=== PATIENT | male | born 1950 | race Caucasian/White ===

== ENCOUNTER 2018-08-20 09:45 | Outpatient (RCR) | payer MEDICARE, OTHER | END 2018-10-20 | disposition home or self-care (01) | LOC: WSST | DX: R49.0 Dysphonia (principal) ==

== ENCOUNTER 2020-06-17 10:32 | Day surgery (SDC) | payer MEDICARE, OTHER ==
[~2020-06-17] VITALS: Ht 180.3 cm; Wt 97.2 kg
[2020-06-17] VITALS (10 sets, daily range): BP systolic 96–122; BP diastolic 52–68; PULSE 61–80; TEMP 97.8
[2020-06-17 11:48] LABS: HEMATOCRIT 39.3 % (42.0-52.0); HEMOGLOBIN 13.6 g/dl (13.5-18.0); MEAN CELL VOLUME 90 fl (80.0-100.0); MEAN CORPUSCULAR HEMOGLOBIN 31 pg (27.0-31.0); MEAN CORPUSCULAR HGB CONC 35 g/dl (33.0-37.0); PLATELET COUNT 173 K/mm3 (130-400); RED BLOOD COUNT 4.39 M/mm3 (4.20-5.60)
[2020-06-17 11:55] LABS: INR 1.1 (0.8-3.0); PROTHROMBIN TIME 12.5 SECONDS (9.7-12.8)
[2020-06-17 11:58] LABS: PARTIAL THROMBOPLASTIN TIME 30.8 SECONDS (26.0-37.0)
[2020-06-17 12:00] LABS: CALCIUM 8.8 mg/dL (8.4-10.2); CREATININE, serum 0.73 (0.66-1.25); POTASSIUM 4.3 mmol/L (3.4-5.0)
[2020-06-17] MEDS ORDERED: NORVASC 5MG5 MG/TAB PO (12:19)
[2020-06-17] MEDS ORDERED: ZYRTEC 10MG10 MG PO (12:23)
[2020-06-17] MEDS ORDERED: EPA FISH OIL1 SGL PO (12:23)
[2020-06-17] MEDS ORDERED: ASPIRIN E.C. 8181 MG PO (12:23)
[2020-06-17] MEDS ORDERED: COZAAR100 MG PO (12:24)
[2020-06-17] MEDS ORDERED: DAILY MULTIPLE1 T18 PO (12:25)
[2020-06-17] MEDS ORDERED: PRILOSEC 20MG20 MG PO (12:27)
[2020-06-17] MEDS ORDERED: FIBER0.52 GM PO (12:27)
[2020-06-17] MEDS ORDERED: CRESTOR 10MG10 MG PO (12:28)
[2020-06-17] MEDS ORDERED: FLOMAX 0.40.4 MG/CAP PO (12:29)
[2020-06-17] MEDS ORDERED: ALDACTONE50 MG PO (12:29)
--- NOTE | 2020-06-17 12:47 | NUR ---
SEE MERGE DOCUMENTATION FOR MEDICATION ADMINISRATION AND INTRA/POST PROCEDURE SEDATION ASSESSMENTS.
--- NOTE | 2020-06-17 13:50 | NUR ---
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 Pt is awake and alert, pwd, NSR on monitor denies any complaints. TR band to rt wrist, cms intact distal. Pt and updated on poc. call light in reach. wctm.
--- NOTE | 2020-06-17 15:30 | NUR ---
PT doing well during recovery, lunch has been ordered, pt denies complaints. we have reviewed dc and fu instructions, pt and deny questions at this time.
--- NOTE | 2020-06-17 16:48 | NUR ---
Pt is ready for departure. TR band was deflated with no problem and site was dressed by Janel COKER. At time of departure there is no sign of bleeding, site soft. cms intact distal. Pt has been amb to bathroom and in room with steady gait, no dizziness or other sx. Pt denies any questions about follow up or dc instructions. IV dc'd with cath intact, dressing applied. pt to exit via wheelchair.
--- NOTE | 2020-06-17 16:50 | NUR ---
Dressing applied to right wrist.Observed clean,dry,intact and soft to touch.INT removed,catheter tip intact.
== END 2020-06-21 16:29 | disposition home or self-care (01) ==
LOC: COL.CAR
PROVIDERS: Internal Medicine Cardiovascular Disease
DX: R06.00 Dyspnea, unspecified (principal); R94.39 Abnormal result of other cardiovascular function study; I49.3 Ventricular premature depolarization; I10 Essential (primary) hypertension; K21.9 Gastro-esophageal reflux disease without esophagitis; E78.6 Lipoprotein deficiency; E78.49 Other hyperlipidemia; Z88.8 Allergy status to other drugs, medicaments and biological substances; Z79.899 Other long term (current) drug therapy; Z79.82 Long term (current) use of aspirin; Z87.891 Personal history of nicotine dependence; Z20.822 Contact with and (suspected) exposure to COVID-19
CPT/HCPCS: J1644; J2250; J3010

== ENCOUNTER → 2021-03-21 | Outpatient (CLI) | payer MEDICARE, OTHER ==
[~2021-03-21] MED LIST: ALDACTONE50 MG PO; ASPIRIN E.C. 8181 MG PO; COZAAR100 MG PO; CRESTOR 10MG10 MG PO; DAILY MULTIPLE1 T18 PO; EPA FISH OIL1 SGL PO; FIBER0.52 GM PO; FLOMAX 0.40.4 MG/CAP PO; NORVASC 5MG5 MG/TAB PO; PRILOSEC 20MG20 MG PO; ZYRTEC 10MG10 MG PO
== END ==
LOC: MC.RAD 08:42
DX: N63.41 Unspecified lump in right breast, subareolar (principal)

== ENCOUNTER → 2021-12-19 | Outpatient (CLI) | payer MEDICARE, OTHER | LOC: COL.RAD 07:09 | DX: M51.36 Other intervertebral disc degeneration, lumbar region (principal); M48.061 Spinal stenosis, lumbar region without neurogenic claudication ==

== ENCOUNTER 2024-01-25 08:10 | Day surgery (SDC) | payer MEDICARE, OTHER ==
[~2024-01-25] VITALS: Ht 180.3 cm; Wt 93.1 kg
[~2024-01-25 08:10] MED LIST changes: -FIBER0.52 GM PO; +FIBERCON PO; +Famotidine 20 MG TAB PO SCH; +LR 1,000 ML IV SCH
[2024-01-25 09:10] VITALS: BP 135/62; PULSE 59; TEMP 98
[2024-01-25] MEDS ORDERED: TYLENOL 8 HR PO (09:29)
[2024-01-25] MEDS ORDERED: MOTRIN 200200 MG/TAB PO (09:30)
[2024-01-25] MEDS ORDERED: CALCIUM CITRAT950 MG PO (09:32)
[2024-01-25] MEDS ORDERED: TOPROL XL 25MG25 MG PO (09:33)
[2024-01-25] MEDS ORDERED: NORCO 325 MG-51 TAB PO (09:34)
[2024-01-25] MEDS ORDERED: Ondansetron 4 MG/2 ML VIAL ONE (09:53)
[2024-01-25] MEDS ORDERED: Lidocaine PF 2% (20 MG/ML) 5 ML VIAL ONE (09:53)
[2024-01-25] MEDS ORDERED: dexAMETHasone 10 MG/ML VIAL ONE (09:53)
[2024-01-25] MEDS ORDERED: fentaNYL 50 MCG/ML 2 ML VIAL ONE (09:53)
[2024-01-25] MEDS ORDERED: NS 10 ML IV ONE (09:53)
[2024-01-25] MEDS ORDERED: Ketorolac 15 MG/ML VIAL IV PRN ×2 (10:15→11:00)
[2024-01-25] MEDS ORDERED: HYDROmorphone 1 MG/1 ML SYRINGE [PACU/SDC ONLY] IV PRN (10:15)
[2024-01-25] MEDS ORDERED: fentaNYL 50 MCG/ML 1 ML SYRINGE/VIAL [PACU/SDC ONLY] IV PRN (10:15)
[2024-01-25] MEDS ORDERED: hydrALAZINE 20 MG/ML 1 ML VIAL IV PRN (10:15)
[2024-01-25] MEDS ORDERED: Ondansetron 4 MG/2 ML VIAL IV PRN (10:15)
[2024-01-25] MEDS ORDERED: ePHEDrine 50 MG/ML VIAL ONE (10:58)
[2024-01-25] MEDS ORDERED: oxyCODONE/Acetaminophen 5-325 MG TAB PO PRN (11:00)
[2024-01-25] MEDS ORDERED: Hyoscyamine 0.125 MG Sublingual TAB SL PRN (11:00)
[2024-01-25] MEDS ORDERED: Lidocaine 2% (20 MG/ML) 20 ML UROJET UR ONE (11:20)
[2024-01-25 11:55] VITALS: BP 134/68; PULSE 65; TEMP 97.6
--- NOTE | 2024-01-25 11:55 | NUR ---
PATIENT RETURNS TO ROOM 8 PER CART FROM PACU ACCOMPANIED BY LUCILLE COKER AND IS AWAKE AND ALERT. IVF INFUSING. PATIENT DENIES ANY PAIN OR NAUSEA. SPOUSE IN ROOM. CALL LIGHT IN REACH. DRINKING WATER.
[2024-01-25 12:10] VITALS: BP 134/65; PULSE 65
--- NOTE | 2024-01-25 12:10 | NUR ---
IV TO INT AND ASSISTED UP TO BATHROOM. ABLE TO VOID AND RETURNS TO ROOM. STATES URINE YELLOW.
[2024-01-25 12:25] VITALS: BP 131/67; PULSE 69
--- NOTE | 2024-01-25 12:25 | NUR ---
IV DISCONTINUED AND SITE IS FREE OF REDNESS OR SWELLING. TOLERATES FLUIDS AND DENIES PAIN. OFFERED SNACK AND WISHES TO EAT AT HOME. DENIES NAUSEA.
--- NOTE | 2024-01-25 12:44 | NUR ---
DISCHARGE INSTRUCTIONS GIVEN AND VOUCES UNDERSTANDING OF THESE. REINFORCED IMPORTANCE OF FORCING FLUIDS.
--- NOTE | 2024-01-25 12:51 | NUR ---
PATIENT DISCHARGED TO HOME DRIVEN BY SPOUSE PER PRIVATE VEHICLE AND TAKEN TO CAR PER WHEELCHAIR AND DISMISSED TO HOME WITH INSTRUCTIONS IN HAND.
== END 2024-01-25 12:51 | disposition home or self-care (01) ==
LOC: SDCO 08:10
DX: N20.1 Calculus of ureter (principal); N40.1 Benign prostatic hyperplasia with lower urinary tract symptoms; R39.12 Poor urinary stream; R39.15 Urgency of urination; R35.1 Nocturia; G47.33 Obstructive sleep apnea (adult) (pediatric); Z87.891 Personal history of nicotine dependence; Z79.82 Long term (current) use of aspirin; Z79.899 Other long term (current) drug therapy; Z85.828 Personal history of other malignant neoplasm of skin
CPT/HCPCS: C1769; C1894; C2617; J0690; J1100; J2405; J2704; J3010; J7120